=== PATIENT | female | born 1960 | race Caucasian/White ===

== ENCOUNTER 2017-01-14 14:25 | Emergency (ER) | payer OTHER ==
[2017-01-14 14:34] VITALS: RESP 16; TEMP 98.4
--- NOTE | 2017-01-14 14:56 | EDPHY ---
H & P Stated Complaint: Dx'd with appendicitis; CT in hand; ate last within last hour Time Seen by Provider: 01/14/17 14:38 HPI/ROS: CHIEF COMPLAINT: Abdominal pain HISTORY OF PRESENT ILLNESS: This is a 56-year-old female presenting to the emergency department sent by her primary care physician for an acute appendicitis. Patient states she has been having intermittent abdominal pain for 7 weeks patient states she was unsure if it whether it was her irritable bowel syndrome that was causing problems, but symptoms had not been resolving with all of her home treatments. Sent by her PCP for CT abdominal pelvis with contrast today. CT results show "findings consistent with acute appendicitis". Patient also reported her last meal was at 2:15 p.m. with no nausea vomiting REVIEW OF SYSTEMS: Constitutional: No fever, no chills. Eyes: No discharge. ENT: No sore throat. Cardiovascular: No chest pain, no palpitations. Respiratory: No cough, no shortness of breath. Gastrointestinal: abdominal pain, no vomiting. Nausea Genitourinary: No hematuria. Musculoskeletal: No back pain. Skin: No rashes. Neurological: No headache. Source: Patient - Personal History LMP (Females 10-55): Post Menopausal Current Tetanus Diphtheria and Acellular Pertussis (TDAP): Yes Tetanus Vaccine Date: 2013 - Medical/Surgical History Other PMH: asthma, GERD, IBS - Social History Smoking Status: Never smoked - Physical Exam Exam: General Appearance: Alert, no distress. Eyes: Pupils equal and round no pallor or injection. ENT, Mouth: Mucous membranes moist. Respiratory: There are no retractions, lungs are clear to auscultation. Cardiovascular: Regular rate and rhythm. Gastrointestinal: Abdomen is soft, tenderness noted to right upper quadrant left upper quadrant, no right lower quadrant pain no rebound tenderness no masses, bowel sounds normal. Neurological: No focal deficits. Ambulatory without gait disturbance Skin: Warm and dry, no rashes. Musculoskeletal: Neck is supple nontender. Extremities: symmetrical, full range of motion. Psychiatric: Patient is oriented X 3, there is no agitation. Constitutional: Initial Vital Signs Temperature (C) 36.9 C 01/14/17 14:31 Heart Rate 83 01/14/17 14:31 Respiratory Rate 16 01/14/17 14:31 Blood Pressure 105/70 01/14/17 14:31 O2 Sat (%) 97 01/14/17 14:31 O2 Delivery Mode Room Air Allergies/Adverse Reactions: Penicillins Allergy (Mild, Verified 01/14/17 14:31) Rash Home Medications: Medication Instructions Recorded Combipatch 08/03/16 Proair Hfa Icu (*) 08/03/16 Qvar 08/03/16 Medical Decision Making ED Course/Re-evaluation: Discussed the plan of care: CBC, CMP, lipase, UA, 1530: Spoke with Dr. Hamilton for consult. 1635: Dr. Hamilton at bedside, patient evaluation. 1705: Dr. Hamilton discussed patient options for surgery. Patient decided for outpatient surgery will schedule this appoint with Dr. Hamilton office, along with an appointment for a HIDA scan. 1710: Discussed discharge instructions with patient, discharge home---> stable. Not in any distress, well-appearing no complaints at this time Differential Diagnosis: Other differential diagnosis considered but not limited to small bowel obstruction, constipation and IBS - Data Points Laboratory Results: Laboratory Results 01/14/17 14:50 01/14/17 14:50 01/14/17 01/14/17 14:50 14:50 WBC 7.95 10^3/uL 10^3/uL (3.80-9.50) RBC 4.64 10^6/uL 10^6/uL (4.18-5.33) Hgb 14.5 g/dL g/dL (12.6-16.3) Hct 42.5 % % (38.0-47.0) MCV 91.6 fL fL (81.5-99.8) MCH 31.3 pg pg (27.9-34.1) MCHC 34.1 g/dL g/dL (32.4-36.7) RDW 12.4 % % (11.5-15.2) Plt Count 225 10^3/uL 10^3/uL (150-400) MPV 10.2 fL fL (8.7-11.7) Neut % (Auto) 65.6 % % (39.3-74.2) Lymph % (Auto) 27.7 % % (15.0-45.0) [place] % (Auto) 4.3 % L % (4.5-13.0) Eos % (Auto) 1.3 % % (0.6-7.6) Baso % (Auto) 0.8 % % (0.3-1.7) Nucleat RBC Rel Count 0.0 % % (0.0-0.2) Absolute Neuts (auto) 5.23 10^3/uL 10^3/uL (1.70-6.50) Absolute Lymphs (auto) 2.20 10^3/uL 10^3/uL (1.00-3.00) Absolute Monos (auto) 0.34 10^3/uL 10^3/uL (0.30-0.80) Absolute Eos (auto) 0.10 10^3/uL 10^3/uL (0.03-0.40) Absolute Basos (auto) 0.06 10^3/uL 10^3/uL (0.02-0.10) Absolute Nucleated RBC 0.00 10^3/uL 10^3/uL (0-0.01) Immature Gran % 0.3 % % (0.0-1.1) Immature Gran # 0.02 10^3/uL 10^3/uL (0.00-0.10) Sodium 139 mEq/L mEq/L (134-144) Potassium 3.7 mEq/L mEq/L (3.5-5.2) Chloride 100 mEq/L mEq/L (97-110) Carbon Dioxide 27 mEq/l mEq/l (22-31) Anion Gap 12 mEq/L mEq/L (8-16) BUN 10 mg/dL mg/dL (7-23) Creatinine 0.7 mg/dL mg/dL (0.6-1.0) Estimated GFR > 60 Glucose 151 mg/dL H mg/dL (70-100) Calcium 9.5 mg/dL mg/dL (8.5-10.4) Lipase 197.0 IU/L IU/L (23-300) Departure - Departure Disposition: Home, Routine, Self-Care Clinical Impression: Abdominal pain Qualifiers: Abdominal location: epigastric Qualified Code(s): R10.13 - Epigastric pain Appendicitis Qualifiers: Appendicitis type: other Qualified Code(s): K36 - Other appendicitis Condition: Good Instructions: Abdominal Pain (ED) Additional Instructions: Discussed discharge instructions with patient 1. See Dr. Hamilton has given you a business card with his office number, call to schedule appointment for outpatient HIDA scan and surgery for appendectomy 2. If at any point time symptoms worsen fever, increased abdominal pain, nausea vomiting return to the emergency department Referrals: Carissa Walker MD [Primary Care Provider] - As per Instructions Fernie Hamilton MD [Medical Doctor] - As per Instructions
[2017-01-14 15:05] LABS: % IMMATURE GRANULYOCYTES 0.3 % (0.0-1.1); ABSOLUTE IMMATURE GRANULOCYTES 0.02 10^3/uL (0.00-0.10); ADD DIFF? NO; ADD MORPH? NO; ADD SCAN? NO; ATYPICAL LYMPHOCYTE FLAG 10 (0-99); FRAGMENT RBC FLAG 0 (0-99); HEMATOCRIT 42.5 % (38.0-47.0); HEMOGLOBIN 14.5 g/dL (12.6-16.3); LEFT SHIFT FLG 0 (0-99); LIPEMIA HEMOLYSIS FLAG 90 (0-99); MEAN CELL HEMOGLOBIN 31.3 pg (27.9-34.1); MEAN CELL HEMOGLOBIN CONCENTR. 34.1 g/dL (32.4-36.7); MEAN CELL VOLUME 91.6 fL (81.5-99.8); MEAN PLATELET VOLUME 10.2 fL (8.7-11.7); PLATELET CLUMPS FLAG 0 (0-99); PLATELET COUNT 225 10^3/uL (150-400); RED BLOOD CELL COUNT 4.64 10^6/uL (4.18-5.33); RED CELL DISTRIBUTION WIDTH 12.4 % (11.5-15.2)
[2017-01-14 15:20] LABS: ANION GAP 12 mEq/L (8-16); CALCIUM 9.5 mg/dL (8.5-10.4); CARBON DIOXIDE 27 mEq/l (22-31); CHLORIDE 100 mEq/L (97-110); CREATININE 0.7 mg/dL (0.6-1.0); GLOMERULAR FILTRATION RATE > 60; GLUCOSE 151 mg/dL (70-100); POTASSIUM 3.7 mEq/L (3.5-5.2); SODIUM 139 mEq/L (134-144)
[2017-01-14 17:40] VITALS: BP 102/59; PULSE 58; O2SAT 99
--- NOTE | 2017-01-14 22:37 | GCON ---
[f rep st] CONSULTATION DATE OF CONSULTATION: 01/14/2017 HISTORY OF PRESENT ILLNESS: This is a 56-year-old patient who presents to the hospital with a CT di agnosis of acute appendicitis. The patient has had a long-standing history of inflammatory bowel di sease from approximately 5 years ago. Over the last several weeks, she has been having intermittent right lower and right upper quadrant abdominal pain associated with eating food. The patient says the pain starts in the right upper quadrant and moves to the left. She denies any nausea, vomiting, diarrhea. Last meal was the 2 in the afternoon just before coming in. The patient denies any trou ble with eating. PAST MEDICAL HISTORY: Inflammatory bowel disease, gastroesophageal reflux, and asthma. MEDICATIONS: As listed in the chart. REVIEW OF SYSTEMS: Significant for chronic abdominal pain associated this time with nausea. All ot her systems are reviewed and are negative. SOCIAL HISTORY: The patient denies smoking. Occasional alcohol use. Denies any illicit drug use. PHYSICAL EXAMINATION: VITAL SIGNS: The patient has a temperature of 36.9, heart rate of 83, blood pressure of 105/70, respiratory rate of 16, saturating 97% on room air. GENERAL: The patient has n o distress. She is alert and oriented to person, place, and time. HEENT: Pupils are 3 mm, equal, no scleral icterus. Oropharynx is moist without lesions. NECK: She has no JVD, thyromegaly, supra clavicular or cervical adenopathy. LUNGS: Clear bilaterally. HEART: Regular heart tones. ABDOME N: Soft, minimal, non-peritoneal tenderness in the left upper quadrant and right upper quadrant. N o right lower quadrant tenderness. No pain at McBurney point. No hepatosplenomegaly. No scars. S KIN: Without rashes. Normal turgor and tone. EXTREMITIES: She has good range of motion in all 4 extremities. 2+/2+ radial, dorsalis pedis, and femoral pulses. She has full muscle strength, equal bilaterally. NEUROLOGICAL: She is nonfocal. Cranial nerves II through XII grossly intact. IMAGING: CT scan is personally reviewed and shows 2 fecaliths. No signs of acute inflammatory deluca ges, although the appendix was slightly dilated. Gallbladder appears normal. She has normal appear ing anatomy otherwise, except that she does have a colon that is full of stool. IMPRESSION: Chronic appendicitis, possible cholecystitis. PLAN: HIDA scan. Outpatient appendectomy. The risks, benefits and alternatives to this approach, including antibiotic use, hospital admission, as well as urgent operation, were all discussed with t he patient and her , deemed unnecessary. I had a discussion with the primary care provider, Dr. Carissa Walker, as well as the ER staff regarding her care. The patient knows to call or return s ooner if she has any problems. /[id number]/MODL
== END 2017-01-14 17:37 | disposition home or self-care (01) ==
DX: K36 Other appendicitis (principal); J45.909 Unspecified asthma, uncomplicated

== ENCOUNTER → 2017-01-17 | Outpatient (CLI) | payer OTHER | LOC: FIMAGING 11:01 | PROVIDERS: ATTEND Internal Medicine | DX: R10.13 Epigastric pain (principal); R14.0 Abdominal distension (gaseous); Z80.41 Family history of malignant neoplasm of ovary | CPT/HCPCS: 78227; A9537 ==

== ENCOUNTER → 2017-02-12 | Outpatient (CLI) | payer OTHER | LOC: BMCIMAGING 10:58 | PROVIDERS: ATTEND Internal Medicine | DX: M51.36 Other intervertebral disc degeneration, lumbar region (principal); M51.37 Other intervertebral disc degeneration, lumbosacral region; M53.3 Sacrococcygeal disorders, not elsewhere classified ==

== ENCOUNTER 2017-03-26 17:50 | Emergency (ER) | payer OTHER ==
[2017-03-26 17:58] VITALS: RESP 16
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
[2017-03-26 18:42] VITALS: BP 124/74; PULSE 80; TEMP 98.4; O2SAT 98
== END 2017-03-26 18:43 | disposition home or self-care (01) ==
LOC: EDUNIT#
DX: S16.1XXA Strain of muscle, fascia and tendon at neck level, initial encounter (principal); J45.909 Unspecified asthma, uncomplicated; V89.9XXA Person injured in unspecified vehicle accident, initial encounter; Y92.410 Unspecified street and highway as the place of occurrence of the external cause

== ENCOUNTER → 2017-06-10 | Outpatient (CLI) | payer OTHER | LOC: FIMAGING 09:16 | PROVIDERS: ATTEND Internal Medicine | DX: Z12.31 Encounter for screening mammogram for malignant neoplasm of breast (principal); Z80.3 Family history of malignant neoplasm of breast | CPT/HCPCS: G0202 ==

== ENCOUNTER → 2018-06-03 | Outpatient (CLI) | payer OTHER | LOC: FIMAGING 08:42 | PROVIDERS: ATTEND Internal Medicine | DX: Z12.31 Encounter for screening mammogram for malignant neoplasm of breast (principal); Z13.820 Encounter for screening for osteoporosis; M85.89 Other specified disorders of bone density and structure, multiple sites; M54.9 Dorsalgia, unspecified; Z78.0 Asymptomatic menopausal state; Z79.890 Hormone replacement therapy; Z87.81 Personal history of (healed) traumatic fracture; Z80.3 Family history of malignant neoplasm of breast; Z80.41 Family history of malignant neoplasm of ovary ==

== ENCOUNTER → 2018-06-09 | Outpatient (CLI) | payer OTHER | LOC: FIMAGING 12:53 | PROVIDERS: ATTEND Internal Medicine | DX: R92.0 Mammographic microcalcification found on diagnostic imaging of breast (principal); Z80.3 Family history of malignant neoplasm of breast ==

== ENCOUNTER → 2018-07-09 | Day surgery (SDC) | payer OTHER ==
[~2018-07-09] MED LIST: BUPIVACAINE 0.5% 30 ML SDV ONE; LIDOCAINE 1% 300 MG/30 ML SDV ONE; THROMBIN (BOVINE) 5,000 UNIT VIAL TP ONE
== END | disposition home or self-care (01) ==
LOC: FIMAGING 07:29
PROVIDERS: ATTEND Internal Medicine
PROC: 0HBT3ZX Excision of Right Breast, Percutaneous Approach, Diagnostic (ICD-10-PCS; principal; 2018-07-09)
DX: N60.91 Unspecified benign mammary dysplasia of right breast (principal); N60.11 Diffuse cystic mastopathy of right breast; Z80.3 Family history of malignant neoplasm of breast

== ENCOUNTER 2018-08-29 06:29 | Day surgery (SDC) | payer OTHER ==
[2018-08-29] MEDS ORDERED: LR 1,000 ML IV ONE (06:40)
[2018-08-29] MEDS ORDERED: LIDOCAINE 1% 300 MG/30 ML SDV ONE ×2 (07:29→10:39)
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
[2018-08-29] MEDS ORDERED: fentaNYL 100 MCG/2 ML INJ ONE (08:03)
[2018-08-29] MEDS ORDERED: LIDOCAINE 2% 5 ML SDV ONE (08:03)
[2018-08-29] MEDS ORDERED: ONDANSETRON 4 MG/2 ML VIAL ONE (08:03)
[2018-08-29] MEDS ORDERED: DEXAMETHASONE 4 MG/ML VIAL ONE (08:03)
[2018-08-29] MEDS ORDERED: PROPOFOL/EMULSION 500 MG/50 ML BOTTLE IV ONE (08:04)
[2018-08-29] MEDS ORDERED: PROMETHAZINE HCL 25 MG/ML INJ IVP PRN (10:19)
[2018-08-29] MEDS ORDERED: HYDROCODONE/APAP 5/325 TAB PO PRN ×2 (10:19→11:51)
[2018-08-29] MEDS ORDERED: MEPERIDINE 25 MG/0.5 ML AMP IVP PRN (10:19)
[2018-08-29] MEDS ORDERED: ACETAMINOPHEN 500 MG TAB PO PRN (10:19)
[2018-08-29] MEDS ORDERED: NALOXONE HCL 0.4 MG/ML INJ IVP PRN (10:19)
[2018-08-29] MEDS ORDERED: fentaNYL 100 MCG/2 ML INJ IVP PRN (10:19)
[2018-08-29] MEDS ORDERED: NA BICARBONATE 50 MEQ/50 ML VIAL ONE (10:40)
[2018-08-29] MEDS ORDERED: PROPOFOL 200 MG/20 ML VIAL ONE (11:18)
--- NOTE | 2018-08-29 11:49 | PDHPUP ---
History & Physical Update H&P update statement: This history and physical update is based on an assessment of the patient which was completed after admission or registration (within 24 hours), but prior to the surgery/procedure. H&P update: H&P reviewed & patient examined, no change in patient's condition since H&P completed
[2018-08-29] MEDS ORDERED: ONDANSETRON DISINTEGRATING 4 MG TAB PO PRN (11:51)
--- NOTE | 2018-08-29 11:51 | POSTOPPROG ---
Post Op Note Date of Operation: 08/29/18 Surgeon: Michael Moore (, FACS) Anesthesiologist: Morelia Whyte DO Anesthesia: IV Sedation Pre-op Diagnosis: right breast ALH Post-op Diagnosis: same Procedure: right partial mastectomy/adjacent tissue transfer Findings: residual Ca++/clip on speciment mammogram Inf/Abcess present in the surg proc area at time of surgery?: No Specimen(s): right breast lumpectomy specimen and additional medial-superior margin inked for orientation and submitted for permanent section
--- NOTE | 2018-08-29 12:46 | POSTANESTH ---
Post Anesthetic Evaluation Cardiovascular Status: Normal, Stable Respiratory Status: Normal, Stable Level of Consciousness/Mental Status: Can Participate in Eval, Alert and Oriented Pain Control: Adequate, Prn Tx Ordered Nausea/Vomiting Control: Adequate, Prn Tx Ordered Complications Possibly Related to Anesthesia: None Noted
[2018-08-29] MEDS ORDERED: ACETAMINOPHEN 500 MG TAB ONE (12:53)
[2018-08-29 14:02] VITALS: BP 109/66
--- NOTE | 2018-08-30 05:31 | GOP ---
DATE OF OPERATION: 08/29/2018 SURGEON: Michael Moore MD, FACS ANESTHESIA: Intravenous sedation. ANESTHESIOLOGIST: Pato Stark D.O. PREOPERATIVE DIAGNOSIS: Right breast atypical lobular hyperplasia. POSTOPERATIVE DIAGNOSIS: Right breast atypical lobular hyperplasia. PROCEDURE PERFORMED: 1. Right breast excisional biopsy with preoperative mammogram guided needle localization. 2. Immediate reconstruction with adjacent tissue transfer. FINDINGS: specimen mammogram confirms removal of previously deployed clip and residual Ca++ closest to the medial-superior border. Additional medial- superior margin excised. ESTIMATED BLOOD LOSS: 25 cc or less. DESCRIPTION OF PROCEDURE: After informed consent was obtained, the patient was brought to the operating room and placed under deep sedation. The right breast was prepped and draped in usual fashion. Before proceeding, a time-out and identification of the patient was performed. She elected to not have prophylactic antibiotics because of concerns of allergy and disturbing her normal darshan. She understood the risk of infection for this procedure is low. 0.25% Marcaine was used to infiltrate the planned incision site, which was slightly inferior and medial to the wire entry site in the upper outer quadrant of the right breast. The skin was incised with a scalpel. Deep dissection was performed with cautery for hemostasis. The wire was mobilized into the incision , and the breast tissue around the shaft and tip of the wire were excised down to the prepectoral fascia. The specimen was removed from the field and tagged for orientation with a margin-marker kit, separately designating the superior, inferior, medial, lateral, anterior, and posterior margins. A specimen mammogram was subsequently performed, and it appeared that the previously deployed clip was closest to the superior and medial margins. These were reexcised to a depth of approximately 8-10 mm and designated with ink and submitted for permanent section. Dr. Barnard reviewed the mammogram and saw that the previously noted calcifications deep to the tip of the wire had been removed. Hemostasis was secured within the cavity. Immediate reconstruction was performed using adjacent tissue transfer as follows: The cavity was close to the upper outer quadrant of the breast, but not within the axillary tail. The breast tissue inferior and medial to the cavity were mobilized in the deep subcutaneous plane with cautery to a distance of 2-3 cm from the wound edge. This allowed this tissue to be cantilever, cephalad, and secured to the remainder of the axillary tail tissue, partially closing the lumpectomy cavity. This was accomplished with interrupted 3-0 Monocryl suture. Subsequently, subcutaneous tissues were closed with 3-0 Monocryl sutures. Skin was closed with 4-0 Monocryl suture in a subcuticular fashion. Needle, sponge, and instrument count were correct. COMPLICATIONS: None. /[id number]/MODL MTDD
== END 2018-08-29 14:06 | disposition home or self-care (01) ==
LOC: FIMAGING 06:29
PROVIDERS: ATTEND Surgery
PROC: BH01ZZZ Plain Radiography of Left Breast (ICD-10-PCS; 2018-08-29)
PROC: 0HBU0ZZ Excision of Left Breast, Open Approach (ICD-10-PCS; principal; 2018-08-29 11:30)
PROC: 0HBU0ZX Excision of Left Breast, Open Approach, Diagnostic (ICD-10-PCS; principal; 2018-08-29 11:30)
DX: N60.91 Unspecified benign mammary dysplasia of right breast (principal); J45.909 Unspecified asthma, uncomplicated; Q21.1 Atrial septal defect
CPT/HCPCS: J1100; J2405; J2704; J3010

== ENCOUNTER → 2018-09-15 | Outpatient (CLI) | payer OTHER ==
[~2018-09-15] MED LIST changes: -BUPIVACAINE 0.5% 30 ML SDV ONE; +GADOBUTROL 10 ML VIAL IVP ONE; -LIDOCAINE 1% 300 MG/30 ML SDV ONE; -THROMBIN (BOVINE) 5,000 UNIT VIAL TP ONE
== END ==
LOC: FIMAGING 08:47
PROVIDERS: ATTEND Surgery
DX: C50.411 Malignant neoplasm of upper-outer quadrant of right female breast (principal); Z98.890 Other specified postprocedural states
CPT/HCPCS: A9585; C8908

== ENCOUNTER 2018-10-03 13:24 | Day surgery (SDC) | payer OTHER ==
[2018-10-03] MEDS ORDERED: LR 1,000 ML IV ONE (13:48)
[2018-10-03] MEDS ORDERED: BUPIVACAINE 0.25% 30 ML SDV ONE (15:11)
--- NOTE | 2018-10-03 15:45 | POSTANESTH ---
Post Anesthetic Evaluation Cardiovascular Status: Normal, Stable Respiratory Status: Normal, Stable Level of Consciousness/Mental Status: Can Participate in Eval, Mildly Sleepy, Arousable Pain Control: Adequate, Prn Tx Ordered Nausea/Vomiting Control: Adequate, Prn Tx Ordered Complications Possibly Related to Anesthesia: None Noted Notes: Pt reports armpit is "sore". Will order toradol.
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
[2018-10-03] MEDS ORDERED: VANCOMYCIN 1 GM in NS 250 ML IV ONE (16:00)
[2018-10-03] MEDS ORDERED: VANCOMYCIN PHARMACY TO DOSE MISC ONE (16:00)
[2018-10-03] MEDS ORDERED: EPINEPHrine 1 MG/ML INJ ONE (16:26)
[2018-10-03] MEDS ORDERED: LIDOCAINE 1% 300 MG/30 ML SDV ONE (16:26)
[2018-10-03] MEDS ORDERED: ONDANSETRON 4 MG/2 ML VIAL ONE (16:33)
[2018-10-03] MEDS ORDERED: DEXAMETHASONE 4 MG/ML VIAL ONE (16:33)
[2018-10-03] MEDS ORDERED: LIDOCAINE 2% 5 ML SDV ONE (16:33)
[2018-10-03] MEDS ORDERED: PROPOFOL/EMULSION 500 MG/50 ML BOTTLE IV ONE ×2 (16:34→17:17)
[2018-10-03] MEDS ORDERED: fentaNYL 100 MCG/2 ML INJ ONE ×2 (16:34→18:29)
[2018-10-03] MEDS ORDERED: HYDROCODONE/APAP 5/325 TAB PO PRN (17:44)
[2018-10-03] MEDS ORDERED: PROMETHAZINE HCL 25 MG/ML INJ IVP PRN (17:44)
[2018-10-03] MEDS ORDERED: fentaNYL 100 MCG/2 ML INJ IVP PRN (17:44)
[2018-10-03] MEDS ORDERED: ALBUTEROL 3 ML DEYVIAL IH PRN (17:44)
[2018-10-03] MEDS ORDERED: LR 500 ML IV PRN (17:44)
[2018-10-03] MEDS ORDERED: DIAZEPAM 5 MG/ML 1 ML SYR IVP PRN (17:44)
[2018-10-03] MEDS ORDERED: NALOXONE HCL 0.4 MG/ML INJ IVP PRN (17:44)
[2018-10-03] MEDS ORDERED: KETOROLAC 30 MG/1 ML SDV IVP ONE (18:00)
--- NOTE | 2018-10-03 18:02 | POSTOPPROG ---
Post Op Note Date of Operation: 10/03/18 Surgeon: Michael Moore (, FACS) Environmental Health Safety Engineer: Katerina Guevara PAS-III Anesthesia: Other (Specify) (MAC) Pre-op Diagnosis: right breast invasive lobular CA Post-op Diagnosis: same Procedure: right axillary sentinel node mapping and SALND/re-excision lateral margin Inf/Abcess present in the surg proc area at time of surgery?: No EBL: 50-100 (75 ml)
[2018-10-03] MEDS ORDERED: KETOROLAC 30 MG/1 ML SDV ONE (18:11)
[2018-10-03] MEDS ORDERED: HYDROCODONE/APAP 5/325 TAB ONE (18:29)
--- NOTE | 2018-10-03 19:33 | GOP ---
[f rep st] OPERATIVE REPORT DATE OF OPERATION: SURGEON: Micahel Moore MD, FACS DRAIN TILER: ENMANUEL Conde3. ANESTHESIA: Monitored anesthesia care. ANESTHESIOLOGIST: Vianey Fleming MD. PREOPERATIVE DIAGNOSIS: Right breast infiltrating lobular carcinoma, status post wide excision with positive lateral margin. POSTOPERATIVE DIAGNOSIS: Right breast infiltrating lobular carcinoma, status post wide excision with positive lateral margin. PROCEDURE PERFORMED: 1. Right axillary sentinel node mapping and superficial axillary node dissection. 2. Reexcision of lateral margin, right lumpectomy cavity. FINDINGS: Two unremarkable-appearing sentinel nodes retrieved from the midlevel 1 chain excised and submitted for permanent section. Lateral wall of the prior lumpectomy cavity excised and inked for orientation, submitted for permanent section. ESTIMATED BLOOD LOSS: 75 mL. DESCRIPTION OF PROCEDURE: After informed consent was obtained, the patient was brought to the operating room and placed under deep sedation by Dr. Fleming. The right arm was extended. The axilla and breast were prepped and draped in the usual fashion. The patient had undergone preoperative sentinel lymph node injection. Preoperative lymphoscintigraphy failed to reveal an axillary node. Interrogation of the axilla using the Neoprobe revealed areas of increased activity compared to the surrounding tissue. The skin was marked with a marking pen, infiltrated with 0.25% Marcaine, and incised transversely near the base of the axilla. Dissection was carried out through the skin, subcutaneous tissues, and superficial axillary fascia. The deep axillary tissues were dissected until the first of 2 sentinel was nodes identified. This measured approximately 1 x 1.5 cm and was somewhat fatty. The Lymphovascular structures leading in and out of the lymph node were Hemoclipped and divided, and the node was delivered from the field. It registered counts of approximately 1800. Reevaluating the axilla with the gamma detector, a second node that met criteria for being a sentinel node was identified, somewhat smaller than the first. This was deeper in the posterior axilla. This was excised in a similar fashion, Hemoclipping small lymphovascular structures that entered in and out of the node. Specimen was removed from the field and registered counts of approximately 400. No other lymph nodes met criteria for being a sentinel node , and there were no suspicious lymph nodes within the axilla. Hemostasis appeared secure. Subcutaneous tissues were approximated with 3-0 Monocryl suture. Skin was closed with 4-0 Monocryl suture in a subcuticular fashion. Nodes were submitted for permanent section. The previous lumpectomy incision in the upper outer quadrant of the right breast was infiltrated with 0.25% Marcaine. The incision was re-incised and old suture material removed from the subcutaneous tissues. The prior lumpectomy cavity had contracted and was somewhat scarred. Dissection was carried out down to the pectoralis border, and all of the remaining breast tissue lateral to the pectoralis border and superficial to the subcutaneous fat was excised from the apex of the cavity inferiorly. This tissue measured approximately 10 to 15 mm in thickness and contained some resolving granulation tissue along the medial aspect. The lateral wall superior, inferior, anterior, and posterior edges of the specimen were inked for orientation. Hemostasis was secured within the cavity with 3-0 Vicryl suture ligature, as well as cautery. The cavity was marked with clips around the perimeter at the base. Subcutaneous tissues were approximated with 3 -0 Monocryl suture. Skin was closed with 4-0 Monocryl suture in a subcuticular fashion. Topical Dermabond was applied. The patient was returned extubated to the recovery room in satisfactory condition. Needle, sponge, and instrument counts were correct. COMPLICATIONS: None. /[id number]/MODL MTDD
[2018-10-03 19:58] VITALS: BP 105/67
== END 2018-10-03 19:54 | disposition home or self-care (01) ==
LOC: FSGY 13:24 → EEVIPCON 16:00 → FSGY 19:54
PROVIDERS: ATTEND Surgery
PROC: 0HBT0ZZ Excision of Right Breast, Open Approach (ICD-10-PCS; principal; 2018-10-03 16:00)
DX: C50.411 Malignant neoplasm of upper-outer quadrant of right female breast (principal); C77.3 Secondary and unspecified malignant neoplasm of axilla and upper limb lymph nodes
CPT/HCPCS: 19301; 78195; A9520; J0171; J1100; J1885; J2405; J2704; J3010; J3370